=== PATIENT | male | born 1985 | race Caucasian/White ===

== ENCOUNTER 2017-02-14 09:12 | Emergency (ER) | payer OTHER ==
[2017-02-14 09:17] VITALS: BP 140/90; PULSE 84; RESP 18; TEMP 98; O2SAT 98
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
--- NOTE | 2017-02-14 09:44 | RADRPT ---
EXAM DATE/TIME: 02/14/2017 09:19 [place] COMPARISON: No previous studies available for comparison. INDICATIONS : Right hand laceration post fall. MEDICAL HISTORY : None. SURGICAL HISTORY : None. ENCOUNTER: Initial ACUITY: 1 day PAIN SCORE: 3/10 LOCATION: Right posterior hand FINDINGS: The osseous structures of the right hand are intact. The alignment is anatomic. No retained foreign b ildefonso is seen. Note is made of soft tissue swelling along the hypothenar area of the hand. CONCLUSION: 1. Soft tissue swelling. No retained foreign body or acute fracture. Ko Escobedo MD on February 14, 2017 at 9:42 Board Certified Radiologist. This report was verified electronically.
== END 2017-02-14 10:09 | disposition home or self-care (01) ==
LOC: PHEFT 09:12
DX: M79.641 Pain in right hand (principal)
CPT/HCPCS: 73130; 99283